=== PATIENT | male | born 1940 | race Caucasian/White ===

== ENCOUNTER 2017-12-08 08:55 | Emergency (ER) | payer OTHER, MEDICARE ==
[~2017-12-08] VITALS: Ht 180.3 cm; Wt 126.1 kg
[~2017-12-08 08:55] MED LIST: APIX5T PO; HYDRODIURIL 112.5 M1 PO; METFORMIN HCL500 MG PO; METOPROLOL SUC100 M1 PO; NORVASC 5MG TAB5 MG PO; PRAVASTATIN SOD40 MG PO; PREDNISONE 20MG20 MG PO; SPIRIVA 18 MCG18 MCG INH; SPIRIVA1 PUF INH; SYMBICORT 160/41 PUF INH; TRAMADOL50 MG PO
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
[2017-12-08] MEDS ORDERED: COUMADIN3 M1 PO (09:53)
--- NOTE | 2017-12-08 10:32 | CT SCAN REPORT ---
EXAMINATION: CT HEAD WITHOUT CONTRAST CLINICAL INFORMATION: Head injury status post fall. On Coumadin. COMPARISON: CT head 03/11/2007. TECHNIQUE: Contiguous axial imaging was performed from the skull base to vertex without intravenous administration of contrast. DLP: 629.25 mGy-cm FINDINGS: There is no acute intracranial hemorrhage or abnormal extra-axial collection. No intracranial mass effect or midline shift. Lateral and third ventricles are normal. No hydrocephalus. Greenfield-white matter differentiation is grossly preserved and there is no evidence of acute territorial infarct. Of note there is a contour abnormality involving the cavernous segment of the right internal carotid artery that may represent an extradural aneurysm. Dural based calcification over the right frontal convexity may represent a tiny calcified meningioma. The calvarium and skull base are intact. Mastoid air cells and middle ear cavities are well-aerated. Visualized paranasal sinuses are well-aerated. IMPRESSION: No evidence of acute hemorrhage. 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 A dedicated CT angiogram or MR angiogram of the head can be obtained for better anatomic characterization of this finding. There is also a possible tiny calcified meningioma over the right frontal convexity.
--- NOTE | 2017-12-08 10:43 | CT SCAN REPORT ---
EXAMINATION: CT CHEST WITHOUT CONTRAST CLINICAL INFORMATION: 77-year-old male with right rib pain status post fall on Coumadin. COMPARISON: Chest CT, 04/11/2015. TECHNIQUE: Multidetector volumetric CT imaging of the chest was done. Axial MIP volume rendering provided. Sagittal and coronal reformatted images were obtained. DLP: 752 mGy-cm FINDINGS: LUNGS AND PLEURA: Trachea and central airways are widely patent and normal in caliber. Moderate centrilobular emphysema. Multiple old calcified granulomas in both lungs. Also, there are multiple old, noncalcified micronodules in both lungs. A solid, noncalcified, lobulated nodular structure measuring up to 0.5 cm AP along the right major fissure is unchanged compared to 04/11/2015 (image 279, series 4). A 0.5 cm pleural-based nodule of the right middle lobe is unchanged (image 288, series 4). Within the left upper lobe, laterally, there is a new irregular nodule extending to the pleura that measures approximately 1.2 cm wide, 1.9 cm AP and 1.8 cm craniocaudal. Again noted is a cluster of tree-in-bud nodules in the left lower lobe (image 387, series 4). In this area but further centrally, a solid, noncalcified, lobulated nodule measures up to 0.8 cm transverse and 1.2 cm AP, compared to size of 0.5 x 0.6 cm on 04/11/2015 (image 377, series 4). No pneumothorax or pleural effusion. MEDIASTINUM: The heart size is normal. Pulmonary arteries are normal in caliber. Atherosclerotic disease of coronary arteries. No pericardial effusion. The esophagus has normal wall thickness. Thyroid gland is atrophied. No mediastinal mass or hemorrhage. LYMPHATICS: No pathologic sized axillary, hilar or mediastinal lymph nodes. UPPER ABDOMEN: Diverticulosis of the visualized colon. Adrenal glands are normal. 3.1 cm exophytic cyst of the upper pole of the right kidney has a simple appearance on these noncontrast images; it was 2.9 cm on 04/11/2015. Calcified granuloma is present in the right lobe of the liver. The visualized infrarenal atherosclerotic aorta is 3.9 cm AP and 3.4 cm transverse. SKELETAL AND CHEST WALL: Acute, nondisplaced fracture of the right anterior seventh rib. No acute findings within the degenerated spine. Thoracic vertebra have well preserved height and alignment. The sternum is intact. 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 IMPRESSION: 1. Acute, nondisplaced fracture of the right anterior seventh rib. No chest wall hematoma, pneumothorax or pleural effusion. 2. Old granulomatous disease with multiple calcified and noncalcified nodules of both lungs that remain unchanged compared to 04/11/2015. 3. A solid, lobulated nodule within the left lower lobe proximal to a region of tree-in-bud nodules has increased in size compared to 04/11/2015. This nodule currently measures 0.8 x 1.2 cm, compared to 0.5 x 0.6 cm on 04/11/2015. Although this could be an infectious nodule, malignancy/neoplasm is not excluded, and tissue sampling may be required. 4. Also, there is a new, irregular 1.2 x 1.9 x 1.8 cm nodule extending to pleura in the left upper lobe, laterally. This nodule is nonspecific. It could represent an infectious or neoplastic nodule. Recommend consultation with the pulmonary service to determine the next most appropriate step in management for this patient. Tissue sampling of nodules may be required. 5. Atherosclerotic disease of coronary arteries and aorta. The visualized infrarenal abdominal aorta is aneurysmal (3.9 cm AP diameter).
[2017-12-08] MEDS ORDERED: HYDROCODON-ACE1 EAC2 PO (11:05)
[2017-12-08 11:24] VITALS: BP 141/75
== END 2017-12-08 11:30 ==
LOC: ERH 08:55
DX: S22.31XA Fracture of one rib, right side, initial encounter for closed fracture (principal); S09.90XA Unspecified injury of head, initial encounter; I10 Essential (primary) hypertension; I48.91 Unspecified atrial fibrillation; J44.9 Chronic obstructive pulmonary disease, unspecified; Z87.891 Personal history of nicotine dependence; Z79.01 Long term (current) use of anticoagulants